=== PATIENT | female | born 1980 | race Caucasian/White ===

== ENCOUNTER → 2016-07-02 | Outpatient (CLI) | payer BC | END | disposition home or self-care (01) | LOC: CDC 11:43 | DX: I49.3 Ventricular premature depolarization (principal) | CPT/HCPCS: 93000 ==

== ENCOUNTER 2016-12-17 09:20 | Inpatient (IN) | payer BC ==
[~2016-12-17] VITALS: Ht 177.8 cm; Wt 159.2 kg
[~2016-12-17 09:20] MED LIST: LABETALOL HCL100 MG PO; LO-DOSE ASPIRIN81 M1 PO; PRENATAL TABLE1 EAC3 PO; VITAMIN D31000 UNIT PO
[2016-12-17 09:53] VITALS: BP 140/85
[2016-12-17] MEDS ORDERED: ENDOCET 5-3251 EACH PO (12:48)
[2016-12-17] MEDS ORDERED: IBUPROFEN800 MG PO (12:48)
[2016-12-17 14:48] VITALS: BP 129/60
[2016-12-17 16:14] VITALS: BP 118/56
[2016-12-17 17:12] VITALS: BP 114/58
[2016-12-18 06:46] LABS: EOSINOPHIL (%) 0.8 % (0-5); EOSINOPHIL COUNT 0.1 K/uL (0-0.3); HEMATOCRIT 31.4 % (36.0-46.0); IMMATURE GRANULOCYTE (%) 0.4 % (0.0-0.7); IMMATURE GRANULOCYTE COUNT 0.1 K/uL; INSTRUMENT ABS NEUTROPHIL CT 8.9 K/uL; LYMPHOCYTE COUNT 2.6 K/uL (1.0-2.8); MCH 30.7 PG (29.0-34.0); MCHC 32.8 G/DL (30.0-36.0); MCV 93.7 FL (83-99); MEAN PLAT.VOLUME 12.7 uM^3 (9.5-12.4); MONOCYTE (%) 7.1 % (3-12); MONOCYTE COUNT 0.9 K/uL (0-0.8); NEUTROPHIL (%) 70.9 % (45-76); NEUTROPHIL COUNT 8.9 K/uL (1.8-6.4); PLATELET COUNT 188 K/uL (156-360); RBC DIS.WIDTH-CV 13.1 % (11.8-14.6); RBC DIS.WIDTH-SD 44.6 % (39-53); RED BLOOD COUNT 3.35 M/uL (3.80-5.20); WHITE BLOOD COUNT 12.6 K/uL (4.1-10.2)
[2016-12-18 07:58] VITALS: BP 115/59
[2016-12-18 19:36] VITALS: BP 124/72
[2016-12-18 21:09] VITALS: BP 120/59
[2016-12-19 00:18] VITALS: BP 139/65
[2016-12-19 04:39] VITALS: BP 118/61
== END 2016-12-19 13:27 | disposition home or self-care (01) | DRG 765 ==
LOC: 2WEST 09:20 → 2SOUTH 11:51 → 2WEST 12-19 13:27
PROVIDERS: Obstetrics & Gynecology Gynecology
DX: O34.211 Maternal care for low transverse scar from previous cesarean delivery (principal); Z68.43 Body mass index [BMI] 50.0-59.9, adult; Z30.2 Encounter for sterilization; Z37.0 Single live birth; Z3A.39 39 weeks gestation of pregnancy; O99.214 Obesity complicating childbirth; E66.01 Morbid (severe) obesity due to excess calories; O16.4 Unspecified maternal hypertension, complicating childbirth
CPT/HCPCS: 36415; 85025; 86850; 86900; 86901; 88302; 90686; J0131; J1580; J1885; J2274; J2405; J2590; J3010; J7050; J7120